=== PATIENT | male | born 1950 | race Caucasian/White ===

== ENCOUNTER → 2017-01-26 | Outpatient (CLI) | payer OTHER | LOC: BMCIMAGING 07:52 | PROVIDERS: ATTEND Physician Assistant Medical | DX: R42 Dizziness and giddiness (principal); K76.0 Fatty (change of) liver, not elsewhere classified; N28.1 Cyst of kidney, acquired ==

== ENCOUNTER 2017-07-04 19:11 | Inpatient (IN) | payer OTHER ==
[2017-07-04] MEDS ORDERED: ADENOSINE 6 MG/2 ML VIAL IVP ONE ×2 (19:24→19:25)
[2017-07-04] MEDS ORDERED: AMIODARONE HCL 150 MG/3 ML VIAL IV ONE (19:25)
[2017-07-04] MEDS ORDERED: ADENOSINE 6 MG/2 ML VIAL ONE (19:27)
[2017-07-04] MEDS ORDERED: AMIODARONE HCL 150 MG/3 ML VIAL ONE (19:27)
[2017-07-04] MEDS ORDERED: NS 500 ML IV ONE (19:38)
[2017-07-04 19:45] LABS: % IMMATURE GRANULYOCYTES 0.2 % (0.0-1.1); ABSOLUTE IMMATURE GRANULOCYTES 0.01 10^3/uL (0.00-0.10); ADD DIFF? NO; ADD MORPH? NO; ADD SCAN? NO; ATYPICAL LYMPHOCYTE FLAG 0 (0-99); FRAGMENT RBC FLAG 0 (0-99); HEMATOCRIT 48.2 % (40.0-51.0); HEMOGLOBIN 15.9 g/dL (13.7-17.5); LEFT SHIFT FLG 0 (0-99); LIPEMIA HEMOLYSIS FLAG 80 (0-99); MEAN CELL HEMOGLOBIN 28.8 pg (27.9-34.1); MEAN CELL VOLUME 87.3 fL (81.5-99.8); MEAN PLATELET VOLUME 10.9 fL (8.7-11.7); PLATELET CLUMPS FLAG 0 (0-99); PLATELET COUNT 247 10^3/uL (150-400); RED BLOOD CELL COUNT 5.52 10^6/uL (4.40-6.38); RED CELL DISTRIBUTION WIDTH 12.9 % (11.5-15.2)
[2017-07-04] MEDS ORDERED: ETOMIDATE 20 MG/10 ML VIAL IVP ONE (19:50)
[2017-07-04 19:53] LABS: INR 1.02 (0.83-1.16); PROTIME(PATIENT) 13.1 SEC (12.0-15.0)
[2017-07-04 19:54] LABS: APTT 29.8 SEC (23.0-38.0)
--- NOTE | 2017-07-04 19:55 | EDPHY ---
H & P Time Seen by Provider: 07/04/17 19:38 HPI/ROS: HPI Palpitations, chest discomfort. 66-year-old male by private vehicle with his . This patient has a history of coronary artery disease. His bias cutting machine operator is Dr. Joseluis Neville and Dr. Rufino Juan at the [facility]. He has had stents placed in 2004 and 2012. He reports that he felt fine today. He reports that he laid down for a nap this afternoon. He woke up at 5:00 p.m. with palpitations that he describes as a fast heart rate and upper abdominal discomfort described as a deep ache in his epigastric area. No associated shortness of breath. He still feels the palpitations on presentation here but states that his epigastric discomfort has improved but is present at a low level now. ROS: Constitutional: No fever, no chills. He reports feeling some generalized weakness and lightheadedness. Eyes: No discharge. No changes in vision. ENT: No sore throat. No nasal congestion or rhinorrhea. Respiratory: No cough. No shortness of breath. Cardiac: As above. Gastrointestinal: As above, no vomiting, no diarrhea. Genitourinary: No hematuria. No dysuria or increased frequency with urination. Musculoskeletal: No back pain. No neck pain. No myalgias or arthralgias. Skin: No rashes. Neurological: No headache. No focal weakness or altered sensation. Past medical history: Coronary artery disease. As above. Social history: Nonsmoker. No alcohol. Here with his . Physical Exam: General Appearance: Alert, no distress. This patient is responding to questions appropriately and in full sentences. This patient appears well- hydrated and well-nourished. Eyes: Pupils equal and round no pallor or injection. No lid edema, erythema or injection. Respiratory: There are no retractions, lungs are clear to auscultation with good air movement bilaterally. Cardiovascular: Marked tachycardia. No murmur appreciated. Gastrointestinal: Abdomen is soft and nontender, no masses, bowel sounds normal. No focal tenderness at McBurney's point. No Dempsey sign. Neurological: Motor sensory function is grossly intact. Cranial nerves are normal. Gait is normal. Skin: Warm and dry, no rashes. Musculoskeletal: Neck is supple and nontender. Extremities are symmetrical. All joints range without pain or impingement. Psychiatric: No agitation. No depression. Database: EKG: EKG time is 7:23 p.m.; EKG shows a wide complex regular tachycardia with ventricular rate of 192. Interpreted by me. EKG time is. 7:45 p.m.; EKG shows a normal sinus rhythm with a ventricular rate of 93. Right bundle branch block noted. The VT, QRS, QT intervals are within normal limits. There are no ST-T wave changes indicative of ischemic or injury pattern. No evidence of right heart strain. Interpreted by me. EKG time is 8:11 p.m.; EKG shows a narrow complex normal sinus rhythm with a ventricular rate of 81. Right bundle branch block noted. The VT, QRS, QT intervals are within normal limits. There are no ST-T wave changes indicative of ischemic or injury pattern. No evidence of right heart strain. Interpreted by me. Imaging: Procedures: Procedure: Electrical cardioversion. The patient was electrically cardioverted for wide complex tachycardia, history of coronary artery disease, probable ventricular tachycardia. The patient was on a continuous insurance billing specialist, with airway equipment at the bedside. The patient was on continuous pulse oximetry. Patient was sedated with 10 mg of IV etomidate. The cardioversion was attempted with 200 joules biphasic current. The cardioversion was successful. Patient converted to sinus rhythm. The patient tolerated the procedure well with no complications. The procedure was performed by myself. Emergency department course: IV placed. He was placed on a insurance billing specialist. Initial vital signs reviewed, heart rate 190, blood pressure 80/50. He was started on IV normal saline with 500 cc to be given as a bolus over the next 30-60 minutes. He was moved to resuscitation [place] room 1 from room 10 after my initial evaluation. He was placed on face mask oxygen. After my review of his EKG as noted above he was sedated with 10 mg of IV etomidate. He was cardioverted successfully with 200 joules. He had several runs of PVCs ranging from 3-10 in a row with intermittent sinus rhythm after cardioversion. He was given 150 mg of IV amiodarone. 7:50 p.m., patient still sedated under etomidate, vital signs stable with a blood pressure of 133/91, insurance billing specialist shows a sinus rhythm, narrow complex ventricular rate of 88. No PVCs. 7:55 p.m., patient is awake now. He is comfortable. No chest pain. Blood pressure 110/85. ob/gyn doctor shows a narrow complex sinus rhythm ventricular rate of 85. No PVCs. Nursing Home Assistant Administrator paged. Plan for transfer to [facility] discussed with the patient and his . 8:05 p.m., spoke with on-call bias cutting machine operator Dr. Greg Brothers. He agrees with above management. He asked that we start the patient on an amiodarone drip at 1 milligram/minute. This was started in the emergency department. Plan will be to admit the patient to the ICU through the hospitalist service. Cardiology will consult on further management. 8:15 p.m., spoke with hospitalist. Patient accepted for admission to the ICU under the care of Dr. Wilber Barahona. 8:40 p.m., Patient's remaining emergency department course under my care has been uneventful. He is currently on an amiodarone drip at 1 milligram/minute. Vital signs reviewed and are stable. ob/gyn doctor shows a narrow complex sinus rhythm with ventricular rate of 88. Blood pressure is normal. He is responding to questions appropriately and in full sentences. Repeat neurologic Assessment is nonfocal. He understands the need for transfer and his management plan. All questions from him and his were answered. He was transferred by ALS in stable and improved condition. Right upper quadrant ultrasound to evaluate for gallbladder pathology will be obtained after admission to the ICU. Differential Diagnosis: The differential diagnosis on this patient includes but is not limited to ventricular tachycardia, SVT, acute coronary syndrome, transaminitis, biliary colic, cholecystitis. This represents a partial list of diagnoses considered. These considerations are based on history, physical exam, past history, reassessment and diagnostic testing. Smoking Status: Unknown if ever smoked Constitutional: Initial Vital Signs Heart Rate 190 H 07/04/17 19:16 Respiratory Rate 24 H 07/04/17 19:16 O2 Sat (%) 99 07/04/17 19:16 O2 Delivery Mode Room Air Allergies/Adverse Reactions: No Known Allergies Allergy (Verified 07/04/17 19:14) Home Medications: Medication Instructions Recorded Aspirin [Aspirin 81mg (OTC)] 81 mg PO DAILY18 06/15/13 Lisinopril [Zestril 20 mg (RX)] 20 mg PO DAILY18 06/15/13 Tamsulosin HCl [Flomax 0.4 MG (RX)] 0.4 mg PO DAILY@1800 06/15/13 Medical Decision Making - Diagnostics Imaging Results: Imaging Impressions Chest X-Ray 07/04/17 19:38 Impression: Hypoventilation. Otherwise negative portable chest. Critical Care Time: I spent a total of 50 minutes of critical care time in obtaining history, performing a physical exam, bedside monitoring of interventions, collecting and interpreting tests and discussion with consultants but not including time spent performing procedures. - Data Points Laboratory Results: Laboratory Results 07/04/17 19:28 07/04/17 19:28 07/04/17 07/04/17 07/04/17 19:28 19:28 19:28 WBC 6.28 10^3/uL 10^3/uL (3.80-9.50) RBC 5.52 10^6/uL 10^6/uL (4.40-6.38) Hgb 15.9 g/dL g/dL (13.7-17.5) Hct 48.2 % % (40.0-51.0) MCV 87.3 fL fL (81.5-99.8) MCH 28.8 pg pg (27.9-34.1) MCHC 33.0 g/dL g/dL (32.4-36.7) RDW 12.9 % % (11.5-15.2) Plt Count 247 10^3/uL 10^3/uL (150-400) MPV 10.9 fL fL (8.7-11.7) Neut % (Auto) 69.7 % % (39.3-74.2) Lymph % (Auto) 22.0 % % (15.0-45.0) [place] % (Auto) 5.3 % % (4.5-13.0) Eos % (Auto) 2.5 % % (0.6-7.6) Baso % (Auto) 0.3 % % (0.3-1.7) Nucleat RBC Rel Count 0.0 % % (0.0-0.2) Absolute Neuts (auto) 4.38 10^3/uL 10^3/uL (1.70-6.50) Absolute Lymphs (auto) 1.38 10^3/uL 10^3/uL (1.00-3.00) Absolute Monos (auto) 0.33 10^3/uL 10^3/uL (0.30-0.80) Absolute Eos (auto) 0.16 10^3/uL 10^3/uL (0.03-0.40) Absolute Basos (auto) 0.02 10^3/uL 10^3/uL (0.02-0.10) Absolute Nucleated RBC 0.00 10^3/uL 10^3/uL (0-0.01) Immature Gran % 0.2 % % (0.0-1.1) Immature Gran # 0.01 10^3/uL 10^3/uL (0.00-0.10) PT 13.1 SEC SEC (12.0-15.0) INR 1.02 (0.83-1.16) APTT 29.8 SEC SEC (23.0-38.0) Sodium 143 mEq/L mEq/L (134-144) Potassium 4.0 mEq/L mEq/L (3.5-5.2) Chloride 105 mEq/L mEq/L (97-110) Carbon Dioxide 23 mEq/l mEq/l (22-31) Anion Gap 15 mEq/L mEq/L (8-16) BUN 19 mg/dL mg/dL (7-23) Creatinine 1.2 mg/dL mg/dL (0.7-1.3) Estimated GFR > 60 Glucose 132 mg/dL H mg/dL (70-100) Calcium 9.5 mg/dL mg/dL (8.5-10.4) Total Bilirubin 1.9 mg/dL H mg/dL (0.1-1.4) Conjugated Bilirubin 0.8 mg/dL H mg/dL (0.0-0.5) Unconjugated Bilirubin 1.1 mg/dL mg/dL (0.0-1.1) AST 385 IU/L H IU/L (17-59) ALT 282 IU/L H IU/L (21-72) Alkaline Phosphatase 88 IU/L IU/L (38-126) Creatine Kinase 428 IU/L H IU/L (0-224) CK-MB (CK-2) Fraction 8.27 ng/mL H ng/mL (0.00-4.55) CK-MB (CK-2) % 1.9 % % (0.0-4.0) Creatine Kinase Interp NEGATIVE (NEGATIVE) Troponin I 0.032 ng/mL ng/mL (0.000-0.034) Total Protein 7.0 g/dL g/dL (6.3-8.2) Albumin 4.4 g/dL g/dL (3.5-5.0) Lipase 223 IU/L IU/L (23-300) Medications Given: Amiodarone HCl (Amiodarone Hcl) 100 mls @ 33 mls/hr IV ONCE ONE Stop: 07/04/17 23:46 Last Admin: 07/04/17 20:40 Dose: 100 mls Discontinued Medications Adenosine (Adenosine) 6 mg IVP EDNOW ONE Stop: 07/04/17 19:25 Last Admin: 07/04/17 20:48 Dose: Not Given Adenosine (Adenosine) 12 mg IVP EDNOW ONE Stop: 07/04/17 19:26 Last Admin: 07/04/17 20:48 Dose: Not Given Amiodarone HCl (Amiodarone Hcl) 300 mg IV EDNOW ONE Stop: 07/04/17 19:26 Last Admin: 07/04/17 19:43 Dose: 150 mg Etomidate (Etomidate) 20 mg IVP EDNOW ONE Stop: 07/04/17 19:51 Last Admin: 07/04/17 19:37 Dose: 20 mg Sodium Chloride (Ns) 500 mls @ 1,000 mls/hr IV EDNOW ONE PRN Reason: Protocol Stop: 07/04/17 20:07 Last Admin: 07/04/17 19:30 Dose: 500 mls Amiodarone HCl (Amiodarone Hcl) 200 mls @ 0 mls/hr IV EDNOW ONE PRN Reason: As Directed Stop: 07/04/17 20:08 Last Admin: 07/04/17 20:58 Dose: Not Given Promethazine HCl (Phenergan) 6.25 mg IVP EDNOW ONE Stop: 07/04/17 20:42 Last Admin: 07/04/17 21:09 Dose: 6.25 mg Departure - Departure Disposition: [facility] Acute Clinical Impression: Wide-complex tachycardia, Epigastric pain, Transaminitis, Hyperbilirubinemia, History of coronary artery disease
[2017-07-04 19:57] LABS: ALANINE AMINOTRANSFERASE 282 IU/L (21-72); ALBUMIN 4.4 g/dL (3.5-5.0); ALKALINE PHOSPHATASE 88 IU/L (38-126); ANION GAP 15 mEq/L (8-16); ASPARTATE AMINOTRANSFERASE 385 IU/L (17-59); BILIRUBIN,TOTAL 1.9 mg/dL (0.1-1.4); BILIRUBIN-CONJUGATED 0.8 mg/dL (0.0-0.5); BILIRUBIN-UNCONJUGATED 1.1 mg/dL (0.0-1.1); CALCIUM 9.5 mg/dL (8.5-10.4); CARBON DIOXIDE 23 mEq/l (22-31); CHLORIDE 105 mEq/L (97-110); CREATININE 1.2 mg/dL (0.7-1.3); GLOMERULAR FILTRATION RATE > 60; GLUCOSE 132 mg/dL (70-100); SODIUM 143 mEq/L (134-144)
[2017-07-04] MEDS ORDERED: AMIODARONE HCL 200 ML IV ONE ×2 (20:07→23:04)
[2017-07-04 20:08] LABS: CK-MB INTERPRETATION NEGATIVE (NEGATIVE); TROPONIN I 0.032 ng/mL (0.000-0.034)
[2017-07-04] MEDS ORDERED: AMIODARONE HCL 150 MG/100 ML BAG (1.5 MG/ML) IV ONE (20:08)
[2017-07-04 20:09] LABS: CREATINE KINASE-MB FRACTION 8.27 ng/mL (0.00-4.55)
--- NOTE | 2017-07-04 20:19 | CPEKG ---
Heart Rate: 192 RR Interval: 312 QRSD Interval: 138 QT Interval: 272 QTC Interval: 487 P Sil[place]: 0 QRS [place]: 91 T Wave [place]: -35 EKG Severity - ABNORMAL ECG - EKG Impression: WIDE COMPLEX TACHYCARDIA EKG Impression: RBBB AND LPFB Electronically Signed By: Stella Mayo 04-Jul-2017 21:09:34
--- NOTE | 2017-07-04 20:21 | CPEKG ---
Heart Rate: 81 RR Interval: 741 P-R Interval: 184 QRSD Interval: 148 QT Interval: 412 QTC Interval: 479 P [place]: 36 QRS [place]: 41 T Wave [place]: -13 EKG Severity - ABNORMAL ECG - EKG Impression: SINUS RHYTHM EKG Impression: RIGHT BUNDLE BRANCH BLOCK Electronically Signed By: Stella Mayo 04-Jul-2017 21:09:34
[2017-07-04] MEDS ORDERED: PROMETHAZINE HCL 25 MG/ML INJ IVP ONE (20:41)
[2017-07-04] MEDS ORDERED: AMIODARONE HCL 100 ML IV ONE (20:45)
[2017-07-04] MEDS ORDERED: PROMETHAZINE HCL 25 MG/ML INJ ONE (21:02)
[2017-07-04] MEDS ORDERED: ETOMIDATE 40 MG/20 ML INJ ONE (21:03)
[2017-07-04] MEDS ORDERED: AMIODARONE A.FIB-6HR INFSN (ORDER 2/3) IV ONE (22:30)
--- NOTE | 2017-07-04 22:46 | CPEKG ---
Heart Rate: 72 RR Interval: 833 P-R Interval: 184 QRSD Interval: 148 QT Interval: 408 QTC Interval: 447 P [place]: 43 QRS [place]: 44 T Wave [place]: -12 EKG Severity - ABNORMAL ECG - EKG Impression: SINUS RHYTHM EKG Impression: RIGHT BUNDLE BRANCH BLOCK Electronically Signed By: Bartolo Barth 06-Jul-2017 07:48:45
[2017-07-04] MEDS ORDERED: ONDANSETRON 4 MG/2 ML VIAL IVP PRN (23:02)
[2017-07-04] MEDS ORDERED: ONDANSETRON DISINTEGRATING 4 MG TAB PO PRN (23:02)
[2017-07-04] MEDS ORDERED: ACETAMINOPHEN 325 MG TAB PO PRN (23:02)
[2017-07-04] MEDS ORDERED: AMIODARONE HCL 540 MG in D5W 300 ML IV ONE (23:04)
--- NOTE | 2017-07-04 23:53 | GHP ---
[f rep st] HISTORY AND PHYSICAL DATE OF ADMISSION: 07/05/2017 CHIEF COMPLAINT: Abdominal discomfort. HISTORY OF PRESENT ILLNESS: This is a 66-year-old male with a history of coronary disease with his last stenting done in 2012. He is otherwise healthy. He was in his usual state of health until 5 o 'clock this evening when he developed sudden onset of lower abdominal discomfort, headache, not feel ing right in heart, and racing heart. He came to the emergency department and was found to be in a wide-complex tachycardia. He was cardioverted successfully. Currently, patient feels back to patrick l. He denies any chest pain. No abdominal pain. He has never had palpitations like this before. He was in [place] just recently but did not drink a lot of alcohol at that time. REVIEW OF SYSTEMS: A 10-point review of systems was obtained and was negative. PAST MEDICAL HISTORY: 1. Coronary artery disease. 2. Hypertension. 3. Hyperlipidemia. 4. BPH. 5. Back surgery. MEDICATIONS: Reviewed. SOCIAL HISTORY: No smoking. Occasional alcohol. FAMILY HISTORY: No cardiac disease. PHYSICAL EXAMINATION: VITAL SIGNS: Afebrile, blood pressure is 126/91, heart rate 81, oxygen satur ation 97% on 2 L. GENERAL: Patient is well developed, no apparent distress. HEENT: Nonicteric sc lerae. Extraocular movements intact. Moist mucous membranes. NECK: Supple. No thyromegaly. YOGESH GS: Good effort. Clear to auscultation bilaterally. CARDIOVASCULAR: Regular rate and rhythm. No murmurs, gallops. ABDOMEN: Positive bowel sounds. Soft, nontender, nondistended. No hepatosplen omegaly. EXTREMITIES: No clubbing, cyanosis, or edema. SKIN: Without rash. Warm, dry, intact. NEUROLOGIC: Alert and oriented x3. Moving all 4 extremities equally. PSYCH: Normal mood and affec t. LABS: CBC is normal. LFTs are elevated with AST 385, ALT 282. Initial troponin is 0.032. EKG virgil or to cardioversion shows a wide-complex tachycardia that looks more like SVT with aberrancy than ve ntricular tachycardia. EKG afterwards shows a right bundle branch block which is known from before. ASSESSMENT: A 66-year-old male presenting with a wide-complex tachycardia. 1. Wide-complex tachycardia. This is either supraventricular tachycardia with aberrancy versus raina tricular tachycardia. He has been started on amiodarone. Cardiology has been consulted and will se e the patient. We will check a troponin in the morning. 2. Elevated liver function tests. This could be due to decreased liver perfusion. He is not havin g any abdominal pain or tenderness currently. There is an ultrasound that is ordered from the ER. Will recheck tomorrow. /[id number]/MODL
[2017-07-05] MEDS ORDERED: AMIODARONE A.FIB-18HR INFSN (ORDER 3/3) IV ONE (04:00)
[2017-07-05 05:34] LABS: ALANINE AMINOTRANSFERASE 228 IU/L (21-72); ALBUMIN 3.3 g/dL (3.5-5.0); ALKALINE PHOSPHATASE 69 IU/L (38-126); ANION GAP 7 mEq/L (8-16); ASPARTATE AMINOTRANSFERASE 221 IU/L (17-59); BILIRUBIN,TOTAL 0.8 mg/dL (0.1-1.4); CALCIUM 8.9 mg/dL (8.5-10.4); CARBON DIOXIDE 21 mEq/l (22-31); CHLORIDE 108 mEq/L (97-110); CREATININE 0.9 mg/dL (0.7-1.3); GLOMERULAR FILTRATION RATE > 60; GLUCOSE 99 mg/dL (70-100); SODIUM 136 mEq/L (134-144); TOTAL PROTEIN 5.7 g/dL (6.3-8.2)
--- NOTE | 2017-07-05 08:10 | CPEKG ---
Heart Rate: 59 RR Interval: 1017 P-R Interval: 188 QRSD Interval: 152 QT Interval: 480 QTC Interval: 476 P [place]: 50 QRS [place]: 52 T Wave [place]: -16 EKG Severity - ABNORMAL ECG - EKG Impression: SINUS RHYTHM EKG Impression: VENTRICULAR PREMATURE COMPLEX EKG Impression: RIGHT BUNDLE BRANCH BLOCK Electronically Signed By: Bartolo Barth 06-Jul-2017 07:48:59
[2017-07-05] MEDS ORDERED: DILTIAZEM HCL/D5W 125 ML IV SCH (09:30)
--- NOTE | 2017-07-05 09:53 | GCON ---
[f rep st] CONSULTATION CARDIOLOGY CONSULTATION DATE OF CONSULTATION: 07/05/2017 CHIEF COMPLAINT: Wide-complex tachycardia and hypotension in a patient with known coronary artery d tere. HISTORY OF PRESENT ILLNESS: This is a 66-year-old gentleman, who is cared for by Dr. Horace cordoba nd Dr. Landry Juan at the [facility]. In 2012, he apparently had a heart attack, requiri ng 2 stents. Since that time, he has done very well without any further interventions. He is a dilshad y active giancarlo, without any ongoing chest pain, palpitations, or syncope. He is followed regularly at the [facility]. Yesterday, he had a nap. He woke up around 5:00 p.m., noting abdomina l discomfort, bloating, and also some irregularities in his heart rate. He could not take his pulse . He eventually presented to the [facility] 3 hours later, where he was noted to be in wide -complex tachycardia. He received DC cardioversion and returned to a normal sinus rhythm. His base line EKG is a normal sinus rhythm, with a right bundle branch block. His EKG did not show any ische marin. He felt well after cardioversion. His cardiac enzymes were normal. At that time, his LFTs we re elevated. He was placed on IV amiodarone and transferred to [facility] for further care and observation . Overnight, he has done well. He continues to be without cardiac symptomatology. His episode las t night was not similar to his prior myocardial infarction. His LFTs have improved. His troponin i s mildly elevated today. However, he remains without symptoms. He did get an ultrasound of his abd omen, and we are awaiting the results. At this time, in reviewing the rhythm strips, I suspect it w as more likely an SVT than a VT episode, but it was sustained. I have told him I would like him to stay in the hospital at least today to be seen by our EP physicians tomorrow to get more definitive input and therapeutic options for the future. We will get an echocardiogram as well. MEDICATIONS: His outpatient medicines include aspirin, lisinopril, and Flomax. PAST HISTORY: Coronary artery disease as noted above. He has a history of hypertension, hyperlipid emia, and back surgery. SOCIAL HISTORY: He is a nonsmoker. He has only occasional alcohol. FAMILY HISTORY: Noncontributory. REVIEW OF SYSTEMS: He has no GI or blood loss. No neurologic issues. No palpitations or syncop e. No ongoing ACS symptomatology. No skin lesions. PHYSICAL EXAMINATION: VITAL SIGNS: Initially at the [facility], his blood pressures were i n the 80s. After cardioversion, they were in the 120 to 130 over 60. Overnight, his rhythm has bee n stable. Normal sinus rhythm, with occasional PVCs. GENERAL: He is a middle-aged male, in no acu te distress. He is alert and oriented. HEENT: Moist oropharynx. BACK: CVA and chest wall withou t palpable tenderness. CARDIOVASCULAR: Regular rate and rhythm. I could not hear a murmur, gallop , or rub. No JVP or HJR. ABDOMEN: Soft and nontender. Normal sinus rhythm. MUSCULOSKELETAL: Sh owed no cyanosis, clubbing, or edema. LABORATORY DATA: Potassium 4.0 today. Creatinine 0.9. AST and ALT were elevated, but coming down. His initial troponin and CK are normal. His troponin today is 0.96. White count is 6. Hemoglobi n of 15. ASSESSMENT: 1. Wide-complex tachycardia, most likely supraventricular tachycardia with known aberrancy with his right bundle branch block, with hypotension sustained and successfully controlled with direct-curre nt cardioversion without recurrence. At this point, he is on IV amiodarone. I would discontinue th is and start diltiazem. He should be continued on telemetry monitoring at least for 24 more hours u ntil he can be further evaluated by the EP service. He feels well, and this was all discussed with him. 2. History of coronary artery disease. The patient had a myocardial infarction and stenting in 201 3. This episode did not replicate any of the symptoms. He was hypotensive for quite some time, whi ch may be adding to his abnormal liver functions and possibly his troponin bump. At this time, he i s not having any ACS symptomatology. His EKG is nonischemic. An echocardiogram is pending. If the patient is referred for EPS evaluation, at that time coronary angiography could be performed. Odin yung, the patient says he has had regular treadmills without ischemia at the [facility], which are unavailable for my review at this time. Further care depending on his clinical course. /[id number]/MODL
--- NOTE | 2017-07-05 12:01 | HOSPPROG ---
Hospitalist Progress Note Assessment/Plan: Wide complex tachycardia - presented with hypotension and successfully cardioverted. Suspect SVT with aberrancy with h/o RBBB. Received IV Amiodarone , since transitioned to IV Diltiazem per cards. -cont PCU / tele monitoring -cont dilt -EP evaluation tomorrow H/O CAD with stenting in 2012 - no chest pain, EKG non-ischemic -cont home meds Elevated LFTs - query hypoperfusion in setting of hypotension, trending down. -abdominal u/s pending -cont to follow Full code Dispo - cont inpt Subjective: Pt feels well. No CP or SOB. Resting comfortably, taking po, ambulating. Objective: Vital Signs Temp Pulse Resp BP Pulse Ox 36.8 C 62 16 133/78 H 96 07/05/17 08:00 07/05/17 11:35 07/05/17 11:35 07/05/17 11:35 07/05/17 11:35 Laboratory Results 07/05/17 05:15 07/04/17 07/05/17 07/06/17 05:59 05:59 05:59 Intake Total 753 Balance 753 PT 13.1 SEC (12.0-15.0) 07/04/17 19:28 INR 1.02 (0.83-1.16) 07/04/17 19:28 - Physical Exam Constitutional: no apparent distress Eyes: PERRL Ears, Nose, Mouth, Throat: moist mucous membranes Cardiovascular: regular rate and rhythym Respiratory: no respiratory distress, clear to auscultation Gastrointestinal: normoactive bowel sounds, soft, non-tender abdomen Skin: warm Musculoskeletal: full muscle strength Neurologic: AAOx3 Psychiatric: interacting appropriately ICD10 Worksheet Patient Problems: Problems Problem Status Onset Epigastric pain Acute History of coronary artery disease Acute Hyperbilirubinemia Acute Transaminitis Acute Wide-complex tachycardia Acute
--- NOTE | 2017-07-05 12:12 | ECHO ---
[id number] + + [address] : : [place] [address] : : [phone] + + Adult Echocardiographic Report + ---+ :Name: AVA RODRIGUEZ RStudy Date: 07/05/2017 10:13 AM : : Hospital Admission Number: [id number] : :: 1950 Gender: Male Height: 68 in : :Age: 66 yrs Race: WH,White Weight: 214 l b : :Reason For Study: Eval LV Fx : : BSA: 2.1 mete rs2: :History: Tachycardia : + ---+ MMode/2D Measurements \T\ Calculations IVSd: 0.83 cm LVIDd: 4.3 cm FS: 44.3 % MV Diam: 3.2 cm LVPWd: 1.0 cm LVIDs: 2.4 cm EDV(Teich): 83.6 ml ESV(Teich): 20.2 ml EF(Teich): 75.8 % Ao root diam: 3.4 cm LVOT diam: 2.0 cm ACS: 1.7 cm LVOT area: 3.1 cm2 Normal Measurement Values: + + :LVIDd (3.5-5.7cm) IVSd (0.6-1.1cm) LVPWd (0.6-1.1cm) Aortic Root (2.0-3.7cm)Left Atrium (1.5-4.0cm): :LV Vol(d) (76-115ml) LV Vol(s) (29-48ml) Ejec Fraction (50-65%)PV Carmelo (0.6- 1.2m/s) TV Carmelo (0.4-1.0m/s) : :MV E Carmelo (0.8-1.0m/s)MV A Carmelo (0.3-1.0m/s)LVOT Carmelo (0.7-1.2m/s) Asc Ao Carmelo ( 0.9-1.8m/s) : + + Doppler Measurements \T\ Calculations MV E max carmelo: MV V2 max: Ao V2 max: AI max carmelo: 41.0 cm/sec 70.0 cm/sec 127.9 cm/sec 502.9 cm/sec MV A max carmelo: MV max P.0 mmHg Ao max PG: AI max P.3 cm/sec MV V2 mean: 6.5 mmHg 101.1 mmHg MV E/A: 0.78 44.1 cm/sec Ao mean PG: AI dec slope: MV mean P.7 mmHg 0.87 mmHg Ao V2 mean: 163.0 cm/sec2 MV V2 VTI: 24.5 cm 90.7 cm/sec AI P1/2t: MV area (1 diam): Ao V2 VTI: 26.8 cm903.5 msec 8.0 cm2 RUTHIE(I,D): 1.8 cm2 MVA(VTI): 1.9 cm2 RUTHIE(V,D): 1.9 cm2 MV Flow area (1diam): 8.0 cm2 LV V1 max: MR max carmelo: SV(MV 1 diam): PA V2 max: 75.5 cm/sec 230.8 cm/sec 197.1 ml 48.5 cm/sec LV V1 max PG: MR max PG: SI(MV 1 diam): PA max P.3 mmHg 21.3 mmHg 0.94 mmHg LV V1 mean P.7 ml/m2 1.1 mmHg SV(LVOT): 47.1 ml LV V1 mean: 49.6 cm/sec LV V1 VTI: 15.0 cm RF(MV,Ao)(1 diam): -0.23 RF(MV,LVOT) (1diam): 0.76 Left Ventricle The left ventricle is normal in size. There is normal left ventricular wall thickness. The left ventricular ejection fraction is normal. There is Doppler evidence for diastolic dysfunction. Ejection Fraction = 76%. The left ventricular wall motion is normal. Right Ventricle The right ventricle is normal in size and function. Atria The left atrial size is normal. Right atrial size is normal. Mitral Valve The mitral valve is normal in structure and function. There is no mitral valve stenosis. There is trace mitral regurgitation. Tricuspid Valve The tricuspid valve is normal in structure and function. There is trace tricuspid regurgitation. Aortic Valve The aortic valve opens well. There is no aortic stenosis. Mild aortic regurgitation. Pulmonic Valve The pulmonic valve is normal in structure and function. There is no pulmonic valvular regurgitation. Great Vessels The aortic root is normal size. Pericardium/Pleural There is no pericardial effusion. Conclusion A complete two-dimensional transthoracic echocardiogram was performed (2D, M-mode, Doppler and color flow Doppler). The left ventricular ejection fraction is normal. There is Doppler evidence for diastolic dysfunction. Ejection Fraction = 76%. The left ventricular wall motion is normal. The right ventricle is normal in size and function. There is trace mitral regurgitation. The tricuspid valve is normal in structure and function. There is trace tricuspid regurgitation. The aortic valve opens well. Mild aortic regurgitation. There is no pericardial effusion. Final Reading Physician: Elvi Donald signed on 07/05/2017 12:11 PM Ordering Physician: JOANN MARLOW Performed By: Joshua Villalobos, CS
[2017-07-05] MEDS ORDERED: LISINOPRIL 20 MG TAB PO SCH ×2 (18:00→21:00)
[2017-07-05] MEDS ORDERED: ASPIRIN 81 MG CHEWABLE TAB PO SCH ×2 (18:00→21:00)
[2017-07-05] MEDS ORDERED: Pitavastatin Calcium [Livalo] 4 MG PO SCH (21:00)
[2017-07-05] MEDS ORDERED: ATORVASTATIN CALCIUM 20 MG TAB PO SCH (21:00)
[2017-07-06 05:09] LABS: ALANINE AMINOTRANSFERASE 153 IU/L (21-72); ALBUMIN 3.2 g/dL (3.5-5.0); ALKALINE PHOSPHATASE 66 IU/L (38-126); ANION GAP 9 mEq/L (8-16); ASPARTATE AMINOTRANSFERASE 85 IU/L (17-59); CALCIUM 8.9 mg/dL (8.5-10.4); CARBON DIOXIDE 21 mEq/l (22-31); CHLORIDE 107 mEq/L (97-110); CREATININE 0.8 mg/dL (0.7-1.3); GLOMERULAR FILTRATION RATE > 60; GLUCOSE 81 mg/dL (70-100); SODIUM 137 mEq/L (134-144); TOTAL PROTEIN 5.7 g/dL (6.3-8.2)
--- NOTE | 2017-07-06 08:18 | CPEKG ---
Heart Rate: 93 RR Interval: 645 P-R Interval: 180 QRSD Interval: 146 QT Interval: 396 QTC Interval: 493 P [place]: 40 QRS [place]: 57 T Wave [place]: -17 EKG Severity - ABNORMAL ECG - EKG Impression: SINUS RHYTHM EKG Impression: RIGHT BUNDLE BRANCH BLOCK Electronically Signed By: Fede Caruso 06-Jul-2017 11:47:31
[2017-07-06] MEDS ORDERED: NON-FORMULARY NEW DRUG (Magnesium Oxide [Magnesium] 500 MG) PO SCH (09:00)
[2017-07-06] MEDS ORDERED: MAGNESIUM OXIDE 400 MG TAB PO SCH (09:00)
[2017-07-06] MEDS ORDERED: PITAVASTATIN CALCIUM 4 MG PO SCH (09:00)
[2017-07-06 12:31] VITALS: TEMP 97.9
--- NOTE | 2017-07-06 17:39 | PDCARCONS ---
Cardiology Consult Reason for Consult: WCT Chief Complaint: Palpitations, dizziness Requesting Physician: Dr. Greg Brothers History of Present Illness: 66 M with CAD, prior stents in 2012. Presented on Thursday with palpitations and dizziness. Was cardioverted in ED due to WCT and above symptoms. Post cardioversion ECG showed RBBB, NSR. History Information - Allergies/Home Medication List Allergies/Adverse Reactions: No Known Allergies Allergy (Verified 07/04/17 19:14) Home Medications: Aspirin [Aspirin 81mg (*)] 81 mg PO DAILY18 06/15/13 [Last Taken 07/04/17] Lisinopril [Zestril 20 mg (*)] 20 mg PO DAILY18 06/15/13 [Last Taken 07/04/17] Cholecalciferol (Vitamin D3) [Vitamin D3] 2,000 unit PO DAILY 07/04/17 [Last Taken 07/04/17] Cyanocobalamin (Vitamin B-12) [B-12] 1,000 mcg PO DAILY 07/04/17 [Last Taken ] Herbals/Supplements -Info Only 1 ea PO DAILY 07/04/17 [Last Taken Unknown] Magnesium Oxide [Magnesium] 500 mg PO DAILY 07/04/17 [Last Taken 07/04/17] Pitavastatin Calcium [Livalo] 4 mg PO DAILY 07/04/17 [Last Taken 07/04/17] I have personally reviewed and updated: family history, medical history, social history, surgical history - Past Medical History coronary artery disease, hypertension, hyperlipidemia - Social History Smoking Status: Unknown if ever smoked Cardiac History - Cardiac History Past Cardiac History: CAD, PCI Cardiac Risk Factors: hypertension (>140/90), lipidemia Physical Exam Temp Pulse Resp BP Pulse Ox 36.6 C 57 L 16 160/91 H 98 07/06/17 12:00 07/06/17 12:00 07/06/17 12:00 07/06/17 12:00 07/06/17 12:00 O2 (L/minute) 2 Constitutional: no apparent distress, appears nourished Eyes: PERRL, EOMI Ears, Nose, Mouth, Throat: moist mucous membranes, hearing normal Cardiovascular: regular rate and rhythym, no murmur, rub, or gallop Respiratory: no respiratory distress Gastrointestinal: normoactive bowel sounds Skin: warm Musculoskeletal: full muscle strength Neurologic: AAOx3 Psychiatric: interacting appropriately, not anxious, thought process linear Lab and Imaging 07/04/17 19:28 07/06/17 04:00 WBC 6.28 10^3/uL (3.80-9.50) 07/04/17 19: RBC 5.52 10^6/uL (4.40-6.38) 07/04/17 19: Hgb 15.9 g/dL (13.7-17.5) 07/04/17 19: Hct 48.2 % (40.0-51.0) 07/04/17 19: MCV 87.3 fL (81.5-99.8) 07/04/17 19: MCH 28.8 pg (27.9-34.1) 07/04/17 19: MCHC 33.0 g/dL (32.4-36.7) 07/04/17 19: RDW 12.9 % (11.5-15.2) 07/04/17 19: Plt Count 247 10^3/uL (150-400) 07/04/17 19: MPV 10.9 fL (8.7-11.7) 07/04/17 19: Neut % (Auto) 69.7 % (39.3-74.2) 07/04/17 19: Lymph % (Auto) 22.0 % (15.0-45.0) 07/04/17 19: Vil[place] % (Auto) 5.3 % (4.5-13.0) 07/04/17 19: Eos % (Auto) 2.5 % (0.6-7.6) 07/04/17 19: Baso % (Auto) 0.3 % (0.3-1.7) 07/04/17: Nucleat RBC Rel Count 0.0 % (0.0-0.2) 07/04/17 19: Absolute Neuts (auto) 4.38 10^3/uL (1.70-6.50) 07/04/17 19: Absolute Lymphs (auto) 1.38 10^3/uL (1.00-3.00) 07/04/17 19: Absolute Monos (auto) 0.33 10^3/uL (0.30-0.80) 07/04/17 19:28 Absolute Eos (auto) 0.16 10^3/uL (0.03-0.40) 07/04/17 19:28 Absolute Basos (auto) 0.02 10^3/uL (0.02-0.10) 07/04/17 19:28 Absolute Nucleated RBC 0.00 10^3/uL (0-0.01) 07/04/17 19:28 Immature Gran % 0.2 % (0.0-1.1) 07/04/17 19: Immature Gran # 0.01 10^3/uL (0.00-0.10) 07/04/17 19: PT 13.1 SEC (12.0-15.0) 07/04/17 19:28 INR 1.02 (0.83-1.16) 07/04/17 19:28 APTT 29.8 SEC (23.0-38.0) 07/04/17 19:28 Sodium 137 mEq/L (134-144) 07/06/17 04:00 Potassium 4.0 mEq/L (3.5-5.2) 07/06/17 04:00 Chloride 107 mEq/L (97-110) 07/06/17 04:00 Carbon Dioxide 21 mEq/l (22-31) L 07/06/17 04:00 Anion Gap 9 mEq/L (8-16) 07/06/17 04:00 BUN 16 mg/dL (7-23) 07/06/17 04:00 Creatinine 0.8 mg/dL (0.7-1.3) 07/06/17 04:00 Estimated GFR > 60 07/06/17 04:00 Glucose 81 mg/dL (70-100) 07/06/17 04:00 Calcium 8.9 mg/dL (8.5-10.4) 07/06/17 04:00 Total Bilirubin 1.0 mg/dL (0.1-1.4) 07/06/17 04:00 Conjugated Bilirubin 0.8 mg/dL (0.0-0.5) H 07/04/17 19:28 Unconjugated Bilirubin 1.1 mg/dL (0.0-1.1) 07/04/17 19:28 AST 85 IU/L (17-59) H 07/06/17 04:00 ALT 153 IU/L (21-72) H 07/06/17 04:00 Alkaline Phosphatase 66 IU/L (38-126) 07/06/17 04:00 Creatine Kinase 428 IU/L (0-224) H 07/04/17 19:28 CK-MB (CK-2) Fraction 8.27 ng/mL (0.00-4.55) H 07/04/17 19:28 CK-MB (CK-2) % 1.9 % (0.0-4.0) 07/04/17 19:28 Creatine Kinase Interp NEGATIVE (NEGATIVE) 07/04/17 19:28 Troponin I 0.479 ng/mL (0.000-0.034) H 07/05/17 12:32 Total Protein 5.7 g/dL (6.3-8.2) L 07/06/17 04:00 Albumin 3.2 g/dL (3.5-5.0) L 07/06/17 04:00 Lipase 223 IU/L (23-300) 07/04/17 19:28 EKG Interpretation: Positive for: right bundle branch block EKG additional interpertation: ECG 07/04/2017 @ 1923 shows RBBB WCT with retrograde P waves seen in inferior leads, c.w. SVT with aberrancy A/P Assessment: 1. CAD 2. HTN 3. HLD 4. SVT with RBBB aberrancy Plan: 1. Start low dose BB until ablation 2. Reviewed options of ablation vs drugs, given symptoms, V rate 192 bpm in patient with CAD, he and I both think ablation is appropriate. Risks of , FL, CVA, tamponade, need for permanent pacemaker, bleed, thrombosis, vascular access complications, infection, anesthesia related Cx d.w. him. Procedure is scheduled in 2 weeks. He should stop BB 5 days before procedure 3. Borderline troponin elevation likely related to SVT and cardioversion. Have d.w. Dr. Juan, [facility] value engineer - pt will have MPI at his office prior to ablation Complex discussion, 45 min with patient, >50% counseling
[2017-07-06 22:03] VITALS: BP 81/58; PULSE 190; RESP 24; O2SAT 99
--- NOTE | 2017-07-07 02:50 | GDS ---
[f rep st] DISCHARGE SUMMARY DISCHARGE DIAGNOSES: 1. Wide complex tachycardia, likely supraventricular tachycardia with aberrancy in the setting of a right bundle branch block. 2. History of coronary artery disease with prior stenting in 2012. 3. Elevated liver function tests suspected secondary to hypotension and hypoperfusion in the setting of wide-complex tachycardia, improved. CONSULTANTS: Greg Brothers MD, cardiology. HISTORY: For details, please see the history and physical dated July 04, 2017. In brief, the patient is a 66-year-old male with history of coronary artery disease, prior stenting, hypertension, hyperlipidemia who presents to the emergency department with chest discomfort and a racing heart. He was found to have a heart rate of 190 with hypotension in the 80s over 60s on arrival. He was successfully cardioverted in the emergency department and admitted to the hospital for further management. HOSPITAL COURSE: Patient was admitted to the progressive care unit. After successful cardioversion in the emergency department, his wide complex tachycardia resolved and he remained in normal sinus rhythm throughout the hospitalization. It is thought this represented supraventricular tachycardia with aberrancy in the setting of his right bundle branch block. He was seen by Cardiology, as well as electrophysiology service. The plan is for him to discharge home and have outpatient cardiac stress testing with his primary exercise physiologist certified Dr. Landry Juan. They have scheduled an ablation in the outpatient setting on July [address] Caruso. I will discharge him on oral Toprol 25 mg p.o. daily hopefully to prevent recurrences of this tachyarrhythmia. He is instructed to hold the Toprol 5 days prior to his ablation. DISPOSITION: Patient is discharged home in stable condition. FOLLOWUP: 1. Dr. Landry Juan, for outpatient cardiac stress testing. 2. Dr. Fede Caruso for outpatient ablation. DISCHARGE MEDICATIONS: Please see [facility] for completed outpatient medication list. New medications: On discharge include Toprol-XL 25 mg p.o. daily, #30, no refills. /[id number]/MODL MTDD
== END 2017-07-06 16:10 | disposition home or self-care (01) | DRG 310 ==
LOC: CED 19:11 → CEDHOLD 20:17 → F2N 20:56 → F2W 07-05 11:20
PROVIDERS: ADMIT Internal Medicine; ATTEND Internal Medicine
PROC: 5A2204Z Restoration of Cardiac Rhythm, Single (ICD-10-PCS; principal; 2017-07-04)
DX: I47.1 Supraventricular tachycardia (principal); I45.10 Unspecified right bundle-branch block; R94.5 Abnormal results of liver function studies; I25.10 Atherosclerotic heart disease of native coronary artery without angina pectoris; I10 Essential (primary) hypertension; E78.5 Hyperlipidemia, unspecified; Z95.5 Presence of coronary angioplasty implant and graft
CPT/HCPCS: 71010-PO; 80048-PO; 80076-PO; 82550-PO; 82553-PO; 83690-PO; 84484-PO; 85025-PO; 85610-PO; 85730-PO; 96374; J0153; J0282; J2550

== ENCOUNTER 2017-07-15 07:08 | Observation (INO) | payer OTHER ==
[2017-07-15] MEDS ORDERED: NS 1,000 ML IV ONE (07:12)
[2017-07-15] MEDS ORDERED: HEPARIN 10,000 UNIT/10 ML MDV ONE (07:33)
[2017-07-15] MEDS ORDERED: ISOPROTERENOL HCL/D5W 0.2 MG/50 ML BAG IV ONE ×2 (07:33→11:05)
[2017-07-15] MEDS ORDERED: BUPIVACAINE 0.5% 30 ML SDV ONE (07:33)
[2017-07-15] MEDS ORDERED: LIDOCAINE 1% 300 MG/30 ML SDV ONE (07:33)
--- NOTE | 2017-07-15 07:39 | CPEKG ---
Heart Rate: 54 RR Interval: 1111 P-R Interval: 176 QRSD Interval: 150 QT Interval: 476 QTC Interval: 452 P [place]: 41 QRS [place]: 64 T Wave [place]: -35 EKG Severity - ABNORMAL ECG - EKG Impression: SINUS RHYTHM EKG Impression: RIGHT BUNDLE BRANCH BLOCK EKG Impression: Compared with previous tracing dated 07/05/2017, ventricular ectopy now absent Electronically Signed By: Manuela Srinivasan 15-Jul-2017 08:47:53
[2017-07-15 07:52] LABS: % IMMATURE GRANULYOCYTES 0.2 % (0.0-1.1); ABSOLUTE IMMATURE GRANULOCYTES 0.01 10^3/uL (0.00-0.10); ADD DIFF? NO; ADD MORPH? NO; ADD SCAN? NO; ATYPICAL LYMPHOCYTE FLAG 0 (0-99); FRAGMENT RBC FLAG 0 (0-99); HEMATOCRIT 46.8 % (40.0-51.0); HEMOGLOBIN 15.9 g/dL (13.7-17.5); LEFT SHIFT FLG 0 (0-99); LIPEMIA HEMOLYSIS FLAG 90 (0-99); MEAN CELL HEMOGLOBIN 29.4 pg (27.9-34.1); MEAN CELL VOLUME 86.7 fL (81.5-99.8); MEAN PLATELET VOLUME 10.5 fL (8.7-11.7); PLATELET CLUMPS FLAG 10 (0-99); PLATELET COUNT 243 10^3/uL (150-400)
[2017-07-15 08:04] LABS: INR 0.99 (0.83-1.16)
[2017-07-15 08:05] LABS: APTT 28.7 SEC (23.0-38.0)
[2017-07-15 08:09] LABS: ANION GAP 12 mEq/L (8-16); CALCIUM 9.3 mg/dL (8.5-10.4); CARBON DIOXIDE 19 mEq/l (22-31); CHLORIDE 108 mEq/L (97-110); CREATININE 0.8 mg/dL (0.7-1.3); GLOMERULAR FILTRATION RATE > 60; GLUCOSE 87 mg/dL (70-100); POTASSIUM 4.6 mEq/L (3.5-5.2); SODIUM 139 mEq/L (134-144)
--- NOTE | 2017-07-15 08:10 | PDANEPAE ---
ANE History of Present Illness 67 yo male with SVT, s/p VC last week ANE Past Medical History - Cardiovascular History Hx Hypertension: Yes Hx Arrhythmias: Yes Hx Coronary Artery / Peripheral Vascular Disease: Yes Cardiovascular History Comment: stent in 2012 - Pulmonary History Hx Recent Upper Respiratory Infection: No Hx Oxygen in Use at Home: No Hx Sleep Apnea: Yes Pulmonary History Comment: Pt had a home overnight pulse ox study in 2012. He was told to have further testing, but never did. - Endocrine History Hx Diabetes: No - Renal History Hx Renal Disorders: No - Liver History Hepatic History Comment: Pt denies, but elevated LFTs noted from 07/04 visit - possible secondary to hypoperfusion at the time secondary to SVT - Neurological & Psychiatric Hx Hx Neurological and Psychiatric Disorders: No - GI History Hx Gastrointestinal Disorders: Yes Gastrointestinal History Comment: Pt reports esophageal/stomach pain with eating. Not on any GERD meds. - Chronic Pain History Chronic Pain: No ANE Review of Systems Review of Systems: - Systems Constitutional: Reports: no symptoms Cardiac: Reports: palpitations (occassional palpitations) Gastrointestinal: Reports: abdominal pain (Abdominal pain after eating) ANE Patient History - Allergies Allergies/Adverse Reactions: No Known Allergies Allergy (Verified 07/04/17 19:14) - Home Medications Home medications: home medication list seen and reviewed Home Medications: Aspirin [Aspirin 81mg (*)] 81 mg PO DAILY18 06/15/13 [Last Taken 07/14/17] Lisinopril [Zestril 20 mg (*)] 20 mg PO DAILY18 06/15/13 [Last Taken 07/14/17] Cholecalciferol (Vitamin D3) [Vitamin D3] 2,000 unit PO DAILY 07/04/17 [Last Taken 07/13/17] Cyanocobalamin (Vitamin B-12) [B-12] 1,000 mcg PO DAILY 07/04/17 [Last Taken 02/23] Herbals/Supplements -Info Only 1 ea PO DAILY 07/04/17 [Last Taken Unknown] Magnesium Oxide [Magnesium] 500 mg PO DAILY 07/04/17 [Last Taken 07/13/17] Pitavastatin Calcium [Livalo] 4 mg PO HS 07/04/17 [Last Taken 07/13/17] - NPO status NPO Status: no food or drink >8 hours - Anes Hx Anes Hx: no prior problems - Smoking Hx Smoking Status: Former smoker - Family Anes Hx Family Anes Hx: none ANE Labs/Vital Signs - Labs Result Diagrams: 07/15/17 07:45 07/15/17 07:45 - Vital Signs Vital Signs: reviewed preoperatively; see RN documention for details Height: 175 cm Weight: 97.5 kg ANE Physical Exam - Airway Neck exam: FROM Mallampati Score: Class 2 Mouth exam: normal dental/mouth exam - Pulmonary Pulmonary: clear to auscultation - Cardiovascular Cardiovascular: regular rate and rhythym - ASA Status ASA Status: II ANE Anesthesia Plan Anesthesia Plan: general endotracheal anesthesia
--- NOTE | 2017-07-15 08:45 | PDHPUP ---
History & Physical Update H&P update statement: This history and physical update is based on an assessment of the patient which was completed after admission or registration (within 24 hours), but prior to the surgery/procedure. H&P update: H&P reviewed & patient examined, no change in patient's condition since H&P completed
[2017-07-15] MEDS ORDERED: fentaNYL 100 MCG/2 ML INJ ONE (08:48)
[2017-07-15] MEDS ORDERED: PROPOFOL/EMULSION 500 MG/50 ML BOTTLE IV ONE (08:48)
[2017-07-15] MEDS ORDERED: DEXAMETHASONE 4 MG/ML VIAL ONE (08:48)
[2017-07-15] MEDS ORDERED: ROCURONIUM 100 MG/10 ML VIAL ONE (08:57)
[2017-07-15] MEDS ORDERED: PHENYLEPHRINE HCL 100 MCG/ML SYR ONE (09:35)
[2017-07-15] MEDS ORDERED: VASOPRESSIN 20 UNIT/ML VIAL ONE (09:49)
[2017-07-15] MEDS ORDERED: ONDANSETRON 4 MG/2 ML VIAL ONE (10:54)
[2017-07-15] MEDS ORDERED: GLYCOPYRROLATE 0.2 MG/1 ML VIAL ONE (11:13)
[2017-07-15] MEDS ORDERED: NEOSTIGMINE METHYLSULFATE 3 MG/3 ML SYR ONE (11:13)
--- NOTE | 2017-07-15 11:25 | EPPROC ---
Electrophysiology Procedure Note: ELECTROPHYSIOLOGIC STUDY AND CATHETER MEDIATED ABLATION OF SLOW/FAST AV BAUDILIO REENTRY TACHYCARDIA PROCEDURES PERFORMED: 94390-39 EP evaluation with RA/RV/LA pace/record, with arrhythmia induction 64059-33 EP evaluation with RA/RV pace record, insert/reposition catheter, with arrhythmia induction 87014 Intracardiac catheter ablation, SVT arrhythmogenic focus 97462 3D mapping Fluoroscopy INDICATION: Underlying RBBB Wide complex tachycardia c.w. SVT with aberrancy PROCEDURE: Catheters & Anesthesia: The patient arrived in the Electrophysiology Laboratory in the fasting state. The right clavicular region, right groin, and left groin area were prepped and draped in the usual sterile manner. Anesthesiologist Dr. Rissa Carmichael administered general anesthesia. Appropriate non-invasive blood pressure, pulse oximetry and end-tidal CO2 monitoring was established. All catheters were placed percutaneously using the modified Seldinger technique , and advanced into position under fluoroscopic guidance. One #6 Maltese hexapolar non-deflectable electrode catheter was inserted into the right atrial appendage via the left femoral vein (2mm spacing; except the proximal ring which was 25cm from the tip used for unipolar recordings). One #7 Maltese deflectable octapolar electrode catheter was advanced to the His-bundle position via the left femoral vein (2mm spacing). One #7 Maltese deflectable quadrapolar catheter was advanced to the anteroseptal right ventricle via the right femoral vein. One #7 Maltese deflectable catheter with 10 pairs of electrodes was placed via the right femoral vein into the coronary sinus. Heparin was given to keep ACT > 200 s. Programmed stimulation was performed from the right atrium, right ventricle and coronary sinus (left atrium). Parahisian pacing demonstrated constant H-A interval with changing V-A intervals and stimulus-A intervals during capture and loss of capture of proximal RBB proving retrograde conduction over AV node. AVNRT was induced during infusion of isoproterenol 2-4 mcg/min. Ventricular extrastimuli delivered during tachycardia without altering antegrade His bundle activation did not advance next atrial potential, indicating that the tachycardia was not utilizing an accessory pathway for retrograde conduction. VA interval was 0 ms. Post entrainment of the tachycardia from the ventricle, there was VAHV response. Initially there was 2:1 conduction during SVT, then 1: 1 conduction. This ruled out AVRT. Tachycardia started with long AH interval. RBBB aberrancy during SVT was of slightly different morphology during 2:1 AV conduction than during 1:1 AV conduction. Mapping of the right atrium and coronary sinus during AVNRT identified earliest atrial activation above the tendon of Luiz at a level slightly posterior to the level of the His bundle, consistent with retrograde conduction over the fast AV baudilio pathway. A #8 Maltese deflectable quadrapolar electrode catheter (2mm-5mm-2mm spacing) with 4 mm tip electrode and sensor for the 3D mapping Carto system was advanced to the right atrium. 3 D mapping of the inter-atrial septum and coronary sinus was performed and location of the AV node was marked. A SL2 sheath was used. RF applications were delivered to the region between the tricuspid annulus and the coronary sinus ostium, at the level of the upper edge of the coronary sinus ostium. Radiofrequency applications were also delivered along the roof of the proximal coronary sinus. Junctional rhythm occurred during all of the RF applications. Programmed stimulation was continued post ablation at baseline and during graded doses of isoproterenol upto 4mcg/min and 8 mcg isoproterenol boluses. Sustained AVNRT was not inducible. There were no echo beats. The catheters were removed. The long sheath was changed to a short 9 Fr sheath. The patient was transferred to the cardiovascular holding area in stable condition. Vascular access sheaths were removed in the holding area. There were no apparent complications. Results: A. Spontaneous Intervals: Pre ablation SCL 1035 ms AH 75 ms HV 45 ms Post ablation SCL 930ms AH 65 ms HV 40ms B. Antegrade AV baudilio function (decremental pacing) Pre ablation FPERP 410 ms WBB CL 400 ms ES testing AH jump from 180 to 230 ms Post ablation FPERP 390 ms WBB CL 380 ms No AH jump with ES testing C. Retrograde AV baudilio function (decremental pacing) Pre ablation FPERP 360 ms WBB CL 350 ms D. Arrhythmias: Sustained slow/fast AVNRT Cycle length 280 ms, AH interval 230 ms, MORRIS interval 50 ms VA interval 0 ms CONCLUSIONS 1. AV baudilio reentrant tachycardia using the slow AV baudilio pathway for antegrade conduction and the fast AV baudilio pathway for retrograde conduction. ( Slow/fast AVNRT). SVT with RBBB aberrancy. RBBB at baseline. 2. Successful ablation of the slow AV baudilio pathway with elimination of 1:1 antegrade conduction over the slow AV baudilio pathway, all retrograde conduction over the slow AV baudilio pathway and the inducibility of AVNRT. 3. No complications. Patient Problems: Problems Problem Status Onset Wide-complex tachycardia Acute Epigastric pain Acute Transaminitis Acute Hyperbilirubinemia Acute History of coronary artery disease Acute
[2017-07-15] MEDS ORDERED: ONDANSETRON 4 MG/2 ML VIAL IVP PRN (11:26)
[2017-07-15] MEDS ORDERED: ACETAMINOPHEN 325 MG TAB PO PRN (11:26)
--- NOTE | 2017-07-15 11:38 | POSTANESTH ---
Post Anesthetic Evaluation Cardiovascular Status: Normal, Stable Respiratory Status: Normal, Stable Level of Consciousness/Mental Status: Can Participate in Eval, Mildly Sleepy, Arousable Pain Control: Adequate, Prn Tx Ordered Nausea/Vomiting Control: Adequate, Prn Tx Ordered Complications Possibly Related to Anesthesia: None Noted
--- NOTE | 2017-07-15 11:41 | CPEKG ---
Heart Rate: 54 RR Interval: 1111 P-R Interval: 176 QRSD Interval: 154 QT Interval: 500 QTC Interval: 474 P [place]: 53 QRS [place]: 70 T Wave [place]: -20 EKG Severity - ABNORMAL ECG - EKG Impression: SINUS RHYTHM EKG Impression: RIGHT BUNDLE BRANCH BLOCK Electronically Signed By: Fede Caruso 15-Jul-2017 15:06:17
[2017-07-15 13:44] LABS: ANION GAP 12 mEq/L (8-16); CALCIUM 8.3 mg/dL (8.5-10.4); CARBON DIOXIDE 19 mEq/l (22-31); CHLORIDE 108 mEq/L (97-110); CREATININE 0.8 mg/dL (0.7-1.3); GLOMERULAR FILTRATION RATE > 60; GLUCOSE 118 mg/dL (70-100); MAGNESIUM 1.8 mg/dL (1.6-2.3); POTASSIUM 4.2 mEq/L (3.5-5.2); SODIUM 139 mEq/L (134-144)
[2017-07-15] MEDS ORDERED: ASPIRIN 81 MG CHEWABLE TAB PO SCH (18:00)
[2017-07-15] MEDS ORDERED: LISINOPRIL 20 MG TAB PO SCH (18:00)
[2017-07-15] MEDS ORDERED: ATORVASTATIN CALCIUM 20 MG TAB PO SCH (21:00)
[2017-07-15] MEDS ORDERED: PITAVASTATIN CALCIUM 4 MG PO SCH (21:00)
[2017-07-16 04:46] LABS: % IMMATURE GRANULYOCYTES 0.3 % (0.0-1.1); ABSOLUTE IMMATURE GRANULOCYTES 0.02 10^3/uL (0.00-0.10); ADD DIFF? NO; ADD MORPH? NO; ADD SCAN? NO; ATYPICAL LYMPHOCYTE FLAG 0 (0-99); FRAGMENT RBC FLAG 0 (0-99); HEMATOCRIT 43.1 % (40.0-51.0); HEMOGLOBIN 14.2 g/dL (13.7-17.5); LEFT SHIFT FLG 10 (0-99); LIPEMIA HEMOLYSIS FLAG 80 (0-99); MEAN CELL HEMOGLOBIN 29.5 pg (27.9-34.1); MEAN CELL HEMOGLOBIN CONCENTR. 32.9 g/dL (32.4-36.7); MEAN CELL VOLUME 89.6 fL (81.5-99.8); MEAN PLATELET VOLUME 10.6 fL (8.7-11.7); PLATELET CLUMPS FLAG 0 (0-99); PLATELET COUNT 222 10^3/uL (150-400); RED BLOOD CELL COUNT 4.81 10^6/uL (4.40-6.38); RED CELL DISTRIBUTION WIDTH 13.1 % (11.5-15.2)
[2017-07-16 04:54] LABS: INR 1.11 (0.83-1.16); PROTIME(PATIENT) 14.2 SEC (12.0-15.0)
[2017-07-16 04:56] LABS: ANION GAP 9 mEq/L (8-16); CALCIUM 9.1 mg/dL (8.5-10.4); CARBON DIOXIDE 23 mEq/l (22-31); CHLORIDE 105 mEq/L (97-110); CREATININE 0.8 mg/dL (0.7-1.3); GLOMERULAR FILTRATION RATE > 60; GLUCOSE 96 mg/dL (70-100); POTASSIUM 4.5 mEq/L (3.5-5.2); SODIUM 137 mEq/L (134-144)
[2017-07-16 05:05] LABS: TROPONIN I 0.322 ng/mL (0.000-0.034)
[2017-07-16 05:11] LABS: CK-MB INTERPRETATION NEGATIVE (NEGATIVE)
[2017-07-16 08:46] VITALS: RESP 17; TEMP 98.1; O2SAT 98
--- NOTE | 2017-07-16 08:46 | CPEKG ---
Heart Rate: 55 RR Interval: 1091 P-R Interval: 172 QRSD Interval: 158 QT Interval: 476 QTC Interval: 456 P [place]: 58 QRS [place]: 64 T Wave [place]: -14 EKG Severity - ABNORMAL ECG - EKG Impression: SINUS RHYTHM EKG Impression: RIGHT BUNDLE BRANCH BLOCK Electronically Signed By: Fede Caruso 16-Jul-2017 10:45:28
[2017-07-16] MEDS ORDERED: NON-FORMULARY NEW DRUG (Magnesium Oxide [Magnesium] 500 MG) PO SCH (09:00)
[2017-07-16] MEDS ORDERED: METOPROLOL SUCCINATE XR 25 MG TAB PO SCH (09:00)
[2017-07-16] MEDS ORDERED: MAGNESIUM OXIDE 400 MG TAB PO SCH (09:00)
[2017-07-16 09:04] VITALS: BP 124/77; PULSE 60
--- NOTE | 2017-07-16 11:55 | ECHO ---
[id number] + + [address] : : [place] [address] : : [phone] + + Adult Echocardiographic Report + --------+ :Name: AVA RODRIGUEZ RStudy Date: 07/16/2017 07:36 AM : : Hospital Admission Number: [id number] Locat ion: 218: :: 1950 Gender: Male Height: 69 in : :Age: 67 yrs Race: WH,White Weight: 214 l b : :Reason For Study: F/U post EP study : : BSA: 2.1 mete rs2 : + --------+ MMode/2D Measurements & Calculations IVSd: 0.94 cm LVIDd: 5.6 cm FS: 47.0 % Ao root diam: LVPWd: 0.95 cm LVIDs: 3.0 cm EDV(Teich): 3.6 cm 152.1 ml LA dimension: ESV(Teich): 3.9 cm 33.7 ml EF(Teich): 77.8 % LVLd ap4: 9.1 cm SV(MOD-sp4): EDV(MOD-sp4): 87.0 ml 118.0 ml LVLs ap4: 6.7 cm ESV(MOD-sp4): 31.0 ml EF(MOD-sp4): 73.7 % Normal Measurement Values: + + :LVIDd (3.5-5.7cm) IVSd (0.6-1.1cm) LVPWd (0.6-1.1cm) Aortic Root (2.0-3.7cm)Left Atrium (1.5-4.0cm): :LV Vol(d) (76-115ml) LV Vol(s) (29-48ml) Ejec Fraction (50-65%)PV Carmelo (0.6- 1.2m/s) TV Carmelo (0.4-1.0m/s) : :MV E Carmelo (0.8-1.0m/s)MV A Carmelo (0.3-1.0m/s)LVOT Carmelo (0.7-1.2m/s) Asc Ao Carmelo ( 0.9-1.8m/s) : + + Doppler Measurements & Calculations MV E max carmelo: Ao V2 max: AI max carmelo: TR max carmelo: 52.8 cm/sec 121.6 cm/sec 542.9 cm/sec 204.1 cm/sec MV A max carmelo: Ao max PG: AI max PG: TR max P.5 cm/sec 5.9 mmHg 117.9 mmHg 16.7 mmHg MV E/A: 1.4 AI dec slope: RAP systole: 231.0 cm/sec2 5.0 mmHg AI P1/2t: 688.5 msecRVSP(TR): 21.7 mmHg Left Ventricle The left ventricle is normal in size. There is normal left ventricular wall thickness. Left ventricular systolic function is normal. Ejection Fraction = 60-65%. No regional wall motion abnormalities noted. Right Ventricle The right ventricle is normal in size and function. Atria The left atrial size is normal. Right atrial size is normal. The interatrial septum is intact with no evidence for an atrial septal defect. Mitral Valve The mitral valve is normal in structure and function. There is no evidence of mitral valve prolapse. There is no mitral valve stenosis. There is mild mitral regurgitation. Tricuspid Valve Normal tricuspid valve. There is trace tricuspid regurgitation. Right ventricular systolic pressure is normal. Aortic Valve The aortic valve is trileaflet. The aortic valve opens well. There is no aortic stenosis. Mild aortic regurgitation. Pulmonic Valve The pulmonic valve is normal in structure and function. There is no pulmonic valvular regurgitation. Great Vessels The aortic root is normal size. Pericardium/Pleural There is no pericardial effusion. Conclusion A complete two-dimensional transthoracic echocardiogram was performed (2D, M-mode, Doppler and color flow Doppler). Incidental finding - liver cyst. Left ventricular systolic function is normal. Ejection Fraction = 60-65%. There is mild mitral regurgitation. There is trace tricuspid regurgitation. Right ventricular systolic pressure is normal. Mild aortic regurgitation. There is no pericardial effusion. Final Reading Physician: Elvi Cook signed on 07/16/2017 11:54 AM Ordering Physician: Fede Caruso Performed By: Marielos Magana, TAOCS
--- NOTE | 2017-07-16 18:56 | GDS ---
[f rep st] DISCHARGE SUMMARY DISCHARGE DIAGNOSES: 1. Supraventricular tachycardia, status post AV node reentrant tachycardia ablation. 2. Right bundle branch block. 3. Coronary artery disease. 4. Hypertension. BRIEF HOSPITAL COURSE: This is a 67-year-old man who is a patient of Dr. Juan, who was referred to Dr. Caruso for treatment of SVT. He has a history of CAD and stents in 2012. He presented to the emergency room on 07/02/2017, with palpitations and dizziness. He was in a wide-complex tachycardia and underwent cardioversion in the ER. Dr. Caruso was consulted and ablation for SVT with aberrancy was planned for 2 weeks later. HOSPITAL COURSE: The patient underwent ablation of AVNRT which had presented initially as a wide-complex tachycardia, which was SVT with right bundle branch block aberrancy. He had a successful ablation of slow AV node pathway with elimination of 1:1 antegrade conduction over the slow AV node pathway. He has done well overnight. He has not had any bleeding at his groin sites. He denies any chest pain, pressure, tightness, shortness of breath or pain in his legs. HOSPITAL TESTING: EKG demonstrates sinus rhythm with right bundle branch block. Echocardiogram demonstrates normal LV function with ejection fraction of 60% to 65%. There is mild MR, trace TR. No pericardial effusion. There is an incidental finding of a liver cyst. LABORATORY: WBC 7.7, hemoglobin 14.2, hematocrit 43.1, platelets 222. PT 14.2. INR 1.1. Sodium 137, potassium 4.5, chloride 105, bicarb 23, BUN 12, creatinine 0.8, glucose 96. CK 152, CK-MB fraction 5.10, CK-MB percent 3.4. Troponin 0.322, which is elevated and to be expected post ablation. PHYSICAL EXAMINATION: VITAL SIGNS: Blood pressure 131/78, pulse 64, respirations 18, temperature is 36.6, O2 saturation on room air is 95%. GENERAL : He is alert and oriented, sitting up in the chair, in no acute distress. CARDIAC: Regular rate, rhythm without murmur, rub, or gallop. LUNGS: Clear to auscultation. ABDOMEN: Soft, nontender. Groin sites are without bleeding or hematoma. There are very mild ecchymoses of the right groin site. EXTREMITIES: Warm. No discoloration. No lower extremity edema. Bilateral +1 pedal pulses. DISCHARGE INSTRUCTIONS: The patient was given verbal and written discharge instructions on activity restrictions. DISCHARGE MEDICATIONS: Please see discharge medication reconciliation. Of note , he will continue metoprolol 25 mg in light of his history of CAD. This had been started post cardioversion for SVT. FOLLOW UP: He has a followup scheduled with Dr. Caruso on 08/13/2017, at 11:45. He was referred to GI of the [facility] for evaluation of liver cyst noted incidentally on echocardiogram. /[id number]/MODL MTDD
--- NOTE | 2017-07-19 17:06 | ASDISCHSUM ---
Discharge Information Plan Status:Home with No Needs Medically Cleared to Leave: Discharge Date:07/16/2017 11:30 AM CM D/C Disposition:Home, Routine, Self-Care ADT D/C Disposition:Home, Routine, Self-Care Projected Discharge Date:07/16/2017 11:30 AM Transportation at D/C:Family Discharge Delay Reason: Follow-Up Date:07/16/2017 11:30 AM Discharge Slot: Final Diagnosis: Placement Information Patient Contact Information Contact Name:JAMES Relationship: Address:[address] [employer] City:[place] Alternate Phone: State/Zip Code:[place] [phone] Email: Financial Information Financial Class: Primary Plan Desc:MEDICARE OUTPATIENT Primary Plan Number:[id number] Secondary Plan Desc:[employer] PPO Secondary Plan Number:[id number] Assessment Information [facility] CM Progress Note CM Note CM Note Notes: Patient underwent an AV ablation with Dr. Caruso. No discharge needs identified. Patient will discharge home with support of family. Date Signed: 07/16/2017 09:57 AM Electronically Signed By:Machelle Swanson Intervention Information Intervention Type:*NARINDER-Signed Date of Service:07/15/2017 03:30 PM Patient Type:Observation Staff Member:Kathrine Norton Hours: Discipline: Severity: Comment:
== END 2017-07-16 11:30 | disposition home or self-care (01) ==
LOC: FSGY 07:08 → F2W 11:26
PROVIDERS: ADMIT Internal Medicine Cardiovascular Disease; ATTEND Internal Medicine Cardiovascular Disease
PROC: 02K83ZZ Map Conduction Mechanism, Percutaneous Approach (ICD-10-PCS; principal; 2017-07-15)
PROC: 4A023FZ Measurement of Cardiac Rhythm, Percutaneous Approach (ICD-10-PCS; principal; 2017-07-15)
PROC: 5A1213Z Performance of Cardiac Pacing, Intermittent (ICD-10-PCS; principal; 2017-07-15)
PROC: 02583ZZ Destruction of Conduction Mechanism, Percutaneous Approach (ICD-10-PCS; principal; 2017-07-15)
DX: I47.1 Supraventricular tachycardia (principal); I45.10 Unspecified right bundle-branch block; I25.10 Atherosclerotic heart disease of native coronary artery without angina pectoris; K76.89 Other specified diseases of liver; I10 Essential (primary) hypertension; E78.5 Hyperlipidemia, unspecified; Z95.5 Presence of coronary angioplasty implant and graft; Z87.891 Personal history of nicotine dependence
CPT/HCPCS: 93005; 93306; 93613; 93621; 93623; 93653; C1730; C1731; C1732; C1893; J1100; J1644; J2370; J2405; J2704; J2710; J3010

== ENCOUNTER → 2017-08-13 | Outpatient (CLI) | payer OTHER ==
[~2017-08-13] MED LIST: IOPAMIDOL (ISOVUE-300) 100 ML BTL ONE
== END ==
LOC: CIMAGING 09:17
PROVIDERS: ATTEND Physician Assistant
DX: K76.89 Other specified diseases of liver (principal); R16.0 Hepatomegaly, not elsewhere classified
CPT/HCPCS: 74160; Q9967